=== PATIENT | female | born 1975 | race Caucasian/White ===

== ENCOUNTER → 2017-03-17 | Outpatient (CLI) | payer OTHER | LOC: FIMAGING 14:30 | PROVIDERS: ATTEND Nurse Practitioner Family | DX: N92.0 Excessive and frequent menstruation with regular cycle (principal) ==

== ENCOUNTER 2017-04-01 10:16 | Emergency (ER) | payer OTHER ==
--- NOTE | 2017-04-01 12:27 | EDPHY ---
H & P Smoking Status: Never smoked Time Seen by Provider: 04/01/17 12:01 HPI/ROS: CHIEF COMPLAINT: Blunt nasal injury HISTORY OF PRESENT ILLNESS: 42-year-old female generally healthy, no anticoagulant use states that 5 days ago she was hiking, tripped and impacted the bridge of her nose and glabella against a rock wall. She has noticed mucous rhinorrhea, has been blowing her nose. The consistency of this discharge is sick, mucus-like and not clear watery. She contacted her primary care provider spoke with the triage nurse is who recommended she come to the ER for evaluation of possible CSF rhinorrhea. No loss of consciousness. No epistaxis. No midline C-spine pain. No headache. No epistaxis. No diplopia. No visual disturbance. No sore throat. No cough or flu-like symptoms. REVIEW OF SYSTEMS: A ten point review of systems was performed and is negative with the exception of the items mentioned in the HPI PAST MEDICAL/SURGICAL HISTORY: no anticoagulant use, no relevant medical/ surgical history SOCIAL HISTORY: denies alcohol use at time of incident PHYSICAL EXAM 1) GENERAL: Well-developed, well-nourished, alert and oriented. Appears to be in no acute distress. Answering questions appropriately. 2) HEAD: Normocephalic, abrasion to glabella. 3) HEENT: Pupils equal, round, reactive to light bilaterally. Negative Horners. Abrasion, soft tissue swelling to bridge of nose. No signs of infection to the abrasion. Nasopharynx: No septal hematoma, mucous discharge with inflammation of the nasal turbinates noted. No deformity or angulation of nose. No septal hematoma. No rhinorrhea. No oral trauma. Ears bilaterally with normal tympanic membranes. No hemotympanum. No fluid or blood in the external auditory canal. No raccoon eyes. No Thomas sign. Teeth are normally aligned with no gross malocclusion, TMJ bilaterally nontender, facial bones nontender including the zygomatic arch, maxilla mandible. No facial crepitus 4) NECK: No cervical collar is on. Posterior cervical spine is nontender, no stepoff, no effusion. Full range of motion which does not elicit any midline cervical spine pain, no posterior midline tenderness, no step-off. 5) LUNGS: Clear to auscultation bilaterally, no wheezes, no rhonchi, no retractions. No chest wall pain. No flaring, no grunting. Moving symmetrically. No crepitus. 6) HEART: Regular rate and rhythm, 7) ABDOMEN: No guarding, no rebound, no focal tenderness, no peritoneal signs, no signs of trauma, no ecchymosis 8) MUSCULOSKELETAL: Moving all extremities, no focal areas of tenderness, no obvious trauma. 9) BACK: No midline vertebral tenderness, no fluctuance, no step-off, no obvious trauma, no visual or palpable abnormality. 10) SKIN: No laceration. DIFFERENTIAL DIAGNOSIS: In no particular order including but not limited to nasal fracture, cribriform plate trauma, CSF rhinorrhea (Baldev Tellez) Constitutional: Initial Vital Signs Temperature (C) 37 C 04/01/17 10:25 Heart Rate 83 04/01/17 10:25 Respiratory Rate 16 04/01/17 10:25 Blood Pressure 143/101 H 04/01/17 10:25 O2 Sat (%) 96 04/01/17 10:25 O2 Delivery Mode Room Air Allergies/Adverse Reactions: Penicillins Allergy (Severe, Verified 04/01/17 10:31) can't breathe Home Medications: Medication Instructions Recorded Control Pill 04/01/17 MDM/Departure - [facility] ED Course/Re-evaluation: 12:20 p.m.: This patient appears well. Presumably she was sent to the emergency department after speaking with the triage nurse at her doctor's office for concerns over possible CSF rhinorrhea, concerns over possible cribriform plate compromise. On exam of the patient I see visible mucus and no rhinorrhea, no septal hematoma. I think that acute cribriform plate traumatic injury and/or CSF rhinorrhea is less than likely in this patient at this time. We have discussed that she may have a nasal fracture. At this time I do not think that emergent imaging of the face or ENT consultation is indicated. However I have recommended continued placement of cold packs on the area, antibiotic ointment applied to the bridge of nose abrasion and follow up with ear nose and throat. She is agreeable with this plan. She has been given name of on-call ENT Dr Bradford Guy. She feels comfortable with this plan. Usual and customary discharge precautions and instructions provided (Geoff,D Nina) The patient was evaluated and managed by the Physician Instructional Paraprofessional/ Nurse Practitioner. My co-signature indicates that I have reviewed this chart and I agree with the findings and plan of care as documented. I am the secondary supervising physician. (Flores Tomas) - Depart Disposition: Home, Routine, Self-Care Clinical Impression: Blunt nasal injury Condition: Good Instructions: Nasal Fracture (ED) Additional Instructions: Apply cold compresses to your nose. Referrals: Bradford Guy MD [Medical Doctor] - 1-2 days without fail (Dr. Bradford Guy is an ear nose and throat doctor)
[2017-04-01 13:22] VITALS: BP 126/78; PULSE 74; RESP 18; TEMP 98.2; O2SAT 95
== END 2017-04-01 13:22 | disposition home or self-care (01) ==
DX: S09.92XA Unspecified injury of nose, initial encounter (principal); W18.40XA Slipping, tripping and stumbling without falling, unspecified, initial encounter; Y99.8 Other external cause status; Y93.01 Activity, walking, marching and hiking

== ENCOUNTER → 2018-05-13 | Outpatient (CLI) | payer OTHER | LOC: FIMAGING 10:07 | PROVIDERS: ATTEND Family Medicine | DX: Z12.31 Encounter for screening mammogram for malignant neoplasm of breast (principal) ==